=== PATIENT | female | born 1980 | race African-American/Black ===

== ENCOUNTER 2016-08-16 16:21 | Emergency (ER) | payer MEDICAID, OTHER ==
[~2016-08-16] VITALS: Ht 167.6 cm; Wt 111.0 kg
[2016-08-16 19:44] LABS: CLARITY URINE CLEAR (CLEAR); COLOR URINE DARK YELLOW (YELLOW); GLUCOSE URINE NEGATIVE (NEGATIVE); KETONES URINE TRACE (NEGATIVE); LEUKOCYTE ESTERASE URINE 1+ (NEGATIVE); NITRITE URINE NEGATIVE (NEGATIVE); OCCULT BLOOD URINE NEGATIVE (NEGATIVE); PH URINE 5.5 (4.5-8.0); PROTEIN URINE NEGATIVE (NEGATIVE); SPECIFIC GRAVITY URINE 1.038 (1.005-1.030)
[2016-08-16 20:00] LABS: RBC URINE 0-2 /hpf (0-2); SQUAMOUS EPITHELIAL CELL URINE FEW /lpf (RARE/1+)
[2016-08-16 20:01] LABS: BACTERIA URINE TRACE
[2016-08-16 20:30] VITALS: BP 107/63
== END 2016-08-16 22:49 | disposition home or self-care (01) ==
LOC: ER 22:04
DX: B37.89 Other sites of candidiasis (principal)
CPT/HCPCS: 81001; 81025; 87210; 99284

== ENCOUNTER 2023-09-18 10:39 | Emergency (ER) | payer MEDICARE, OTHER ==
[~2023-09-18] VITALS: Ht 167.6 cm; Wt 105.0 kg
[2023-09-18 10:42] VITALS: O2SAT 99
[2023-09-18] MEDS: SODIUM CHLORIDE 0.9% 1,000 ML IV ONE ×2 (11:28→15:19)
[2023-09-18] MEDS: ONDANSETRON HCL 4MG/2ML INJ IV ONE (11:28)
[2023-09-18 11:29] LABS: HEMATOCRIT. 36.8 % (36.0-48.0); HEMOGLOBIN. 12.3 g/dL (12.0-16.0); MEAN CORPUSCULAR HEMOGLOBIN 28.2 pg (28.0-32.0); MEAN CORPUSCULAR HGB CONC 33.4 g/dL (31.0-37.0); MEAN CORPUSCULAR VOLUME 84.3 fL (81.0-99.0); MEAN PLATELET VOLUME 8.7 fl (7.4-10.4); PLATELET 236 x1000/uL (130-400); RED BLOOD CELL COUNT 4.37 mill/uL (4.2-5.4); RED CELL DISTRIBUTION WIDTH 13.3 % (11.6-14.6); WHITE BLOOD COUNT 14.2 x1000/uL (4.5-11.0)
[2023-09-18 11:35] LABS: CHLORIDE 103 mEq/L (98-107); POTASSIUM 3.2 mEq/L (3.5-5.1); SODIUM 133 mEq/L (136-145)
[2023-09-18 11:36] LABS: CALCIUM 8.5 mg/dL (8.7-10.4); CARBON DIOXIDE 24 mEq/L (21-32)
[2023-09-18 11:40] LABS: CREATININE 0.9 mg/dL (0.6-1.0)
[2023-09-18 11:41] LABS: GLUCOSE 282 mg/dL (70-105)
[2023-09-18 11:42] LABS: DIFFERENTIAL COMMENT 1
[2023-09-18 11:43] LABS: ALANINE AMINOTRANSFERASE 10 IU/L (10-49); ALBUMIN 3.6 g/dL (3.2-4.8); ASPARTATE AMINOTRANSFERASE 13 IU/L (<34); BILIRUBIN TOTAL 0.8 mg/dL (0.1-1.0); PROTEIN TOTAL 6.3 g/dL (6.0-8.3)
[2023-09-18 11:50] LABS: HCG SCREEN NEGATIVE
[2023-09-18 11:54] LABS: UREA NITROGEN BLOOD < 5 mg/dL (9-23)
[2023-09-18] MEDS: POTASSIUM CHLORIDE 20MEQ/PACKET PO NR (13:12)
[2023-09-18 13:27] LABS: PLATELET ESTIMATE NORMAL
[2023-09-18 13:43] LABS: TROPONIN I HIGH SENSITIVITY < 4 ng/L (3.0-34)
[2023-09-18] MEDS: KETOROLAC 15MG/ML VIAL IV ONE (13:51)
[2023-09-18] MEDS: METOCLOPRAMIDE HCL 10MG/2ML VIAL IV ONE (13:51)
[2023-09-18] MEDS ORDERED: AZIT250T MT (15:32)
[2023-09-18 18:34] VITALS: BP 131/86; PULSE 87; RESP 25; TEMP 98.7
== END 2023-09-18 18:36 | disposition home or self-care (01) ==
LOC: ER 10:39
DX: J18.9 Pneumonia, unspecified organism (principal); E11.9 Type 2 diabetes mellitus without complications
CPT/HCPCS: 80053; 82962; 84703; 83690; 85025; 84484; 36415; 71045; 70450; 96361; 96374; 96375; 99285; J1885; J2765; J2405; J7030; Z7610 ×3